=== PATIENT | female | born 1970 | race Caucasian/White ===

== ENCOUNTER 2020-03-03 10:57 | Outpatient (CLI) | payer OTHER, SELFPAY ==
--- NOTE | ~2020-03-03 | MR_ITS ---
EXAMINATION: MR knee LT wo con DATE: 03/03/2020 12:26 INDICATION: Chronic left knee pain TECHNIQUE: Magnetic resonance imaging (MRI) of the left knee was performed without intravenous contra st. Sequences included coronal PD-weighted FSE, coronal PD-weighted FS FSE, sagittal T2-weighted FSE , sagittal PD-weighted FS FSE and axial PD weighted fat saturated FSE. COMPARISON: Left knee radiographs dated 03/17/2019 FINDINGS: Medial compartment: Medial meniscus is normal. Articular cartilage is normal. Lateral compartment: Lateral meniscus is normal. Articular cartilage is normal. Patellofemoral compartment: Partial-thickness chondral ulceration along the inferior aspect of the medial trochlea without degene rative subarticular changes. Ligaments and tendons: Anterior and posterior cruciate ligaments are normal. The medial collateral ligament and fibular anastasiia ateral ligament complex are normal. The extensor mechanism is normal. The visualized medial and later al hamstring tendons as well as the iliotibial band are normal. Fluid: Physiologic amount of fluid in the joint space. No loose osteochondral bodies identified. Osseous/other: Normal marrow signal. No fracture or abnormal marrow replacing process. IMPRESSION: 1. Small region of partial-thickness chondral ulceration without degenerative subarticular changes al shubham the caudal aspect of the medial trochlea. Reviewed, dictated and finalized at location A. IMPRESSION: 1. Small region of partial-thickness chondral ulceration without degenerative s ubarticular changes along the caudal aspect of the medial trochlea.
== END 2020-03-03 10:58 | disposition home or self-care (01) ==
LOC: ANHIMG 11:07
PROVIDERS: PCP Family Medicine
DX: M25.562 Pain in left knee (principal); G89.29 Other chronic pain
CPT/HCPCS: 73721

== ENCOUNTER 2020-04-29 11:20 | Outpatient (CLI) | payer OTHER, SELFPAY ==
--- NOTE | ~2020-04-29 | MR_ITS ---
EXAMINATION: MR knee RT wo con DATE: 04/29/2020 12:13 INDICATION: Acute right knee pain. TECHNIQUE: Magnetic resonance imaging (MRI) of the right knee was performed without intravenous contr ast. Sequences included axial PD-weighted FS FSE, coronal PD-weighted FSE and PD-weighted FS FSE, sag ittal PD-weighted FSE, and sagittal T2-weighted FS FSE. COMPARISON: Right knee radiographs 03/17/2019 FINDINGS: Medial compartment: Medial meniscus is normal. Medial compartment cartilage is normal. Lateral compartment: Lateral meniscus is normal. Lateral compartment cartilage is normal. Patellofemoral compartment: There is cartilage surface irregularity of patellar lateral facet. There is deep partial thickness ca rtilage loss of medial trochlea with mild subchondral edema-like marrow signal intensity. Ligaments and tendons: The anterior and posterior cruciate ligaments are normal. Medial collateral ligament and lateral anastasiia ateral ligament complex are normal. There is mild patellar tendinopathy. Fluid: There is a small knee joint effusion. There is mild superficial infrapatellar bursitis. IMPRESSION: 1. Moderate chondrosis of patellofemoral compartment. 2. Small knee joint effusion. Reviewed, dictated and finalized at location A.
== END 2020-04-29 11:21 | disposition home or self-care (01) ==
PROVIDERS: PCP Family Medicine
DX: M25.461 Effusion, right knee (principal)
CPT/HCPCS: 73721

== ENCOUNTER 2021-10-25 07:28 | Outpatient (RCR) | payer OTHER, SELFPAY ==
[2021-10-25] MEDS: ACETAMINOPHEN 325 MG TABLET 650 MG PO (09:25)
[2021-10-25] MEDS: diphenhydrAMINE HCl CAP 25 MG CAPSULE PO (09:26)
[2021-10-25] MEDS: FAMOTIDINE 20 MG TABLET PO (09:26)
[2021-10-25 09:31] VITALS: BP 127/77; PULSE 70; RESP 18; TEMP 36.4; O2SAT 100
[2021-10-25 10:52] VITALS: BP 120/59; PULSE 74; O2SAT 100
== END 2021-10-25 17:00 ==
LOC: AMCINF 07:28
PROVIDERS: PCP Nurse Practitioner Adult Health; Visit Provider Internal Medicine Hematology & Oncology
DX: U07.1 COVID-19 (principal); D84.9 Immunodeficiency, unspecified
CPT/HCPCS: A9270; M0247; Q0247

== ENCOUNTER 2022-09-18 11:51 | Day surgery (SDC) | payer OTHER, SELFPAY ==
[2022-07-05 08:41] VITALS: BMI 27.7
[2022-09-10 10:04] VITALS: BMI 26.1
--- NOTE | 2022-09-17 15:30 | PM.HPGS ---
History of Present Illness History of Present Illness Consent: Risks, benefits, and alternatives have been discussed and questions answered. Patient agrees to proceed with procedure. Chief complaint: Neoplam Screening Narrative: Dahiana Silvestre is a 51 year old female was referred for colon cancer screening. Review of Systems Review of Systems: All systems reviewed & are unremarkable except as noted in HPI and below PMFSH Past Medical History Medical History Chronic, continuous use of opioids Hyperlipidemia Psoriasis Social History Social History Smoking packs per day: 0.5 Smoking cigarettes per day: 10.0 Years smoked: 20 Smoking pack-years: 10.00 Smoking status: Former smoker Tobacco type: cigarettes Alcohol intake: current Drinks per week: 1 Substance use: never Substance use type: does not use Living arrangements: alone Spiritual care concerns: No Meds Home Medications and Allergies Home Medications Medication Instructions Recorded Confirmed Type folic acid 1 mg tablet 4 mg PO DAILY 10/25/21 09/18/22 History prednisone 5 mg tablet 5 mg PO DAILY 10/25/21 09/18/22 History gabapentin 600 mg tablet 600 mg PO TID 09/10/22 09/18/22 History hydrocodone 7.5 mg-ibuprofen 200 1 tablet PO Q4-6H PRN Pain 09/10/22 09/18/22 History mg tablet methenamine hippurate 1 gram tablet 1 g PO BID 09/10/22 09/18/22 History methotrexate sodium 25 mg/mL 0.2 mg IM WEEKLY 09/10/22 09/18/22 History injection solution oxybutynin chloride 10 mg 10 mg PO HS 09/10/22 09/18/22 History tablet,extended release 24 hr pravastatin 10 mg tablet 10 mg PO HS 09/10/22 09/18/22 History ustekinumab 45 mg/0.5 mL 45 mg subcut DAILY 09/10/22 09/18/22 History subcutaneous syringe (Stelara) Allergies Allergy/AdvReac Type Severity Reaction Status Date / Time No Known Allergies Allergy Verified 09/18/22 12:23 Exam Resp: Auscultation: clear to auscultation bilaterally Cardio: Rate: regular rate Rhythm: regular rhythm GI: GI Palp: Yes Soft to palpation and No Tenderness to palpation present (GI) Assessment and Plan Assessment and plan (1) Colon cancer screening: Code(s): Z12.11 - Encounter for screening for malignant neoplasm of colon Status: Acute Assessment and Plan: Colonoscopy with possible biopsy or polypectomy or cautery or injection of substances.
--- NOTE | 2022-09-18 08:48 | WPDANESEPPF ---
Anes - Initial Pre Proc Eval Procedure: Operation Date: 09/18/22 13:30 Proposed Procedures p Screening Colonoscopy - Torey Dior MD Date/Time: 09/18/22 08:48 Surgeon: Torey Dior MD Pre Op Diagnosis: Neoplam Screening Patient Data Age: 51 Gender: F Height: 1.73 m Weight: 78 kg Allergies Allergy/AdvReac Type Severity Reaction Status Date / Time No Known Allergies Allergy Verified 09/18/22 12:23 Home Medications Medication Instructions Recorded Confirmed Type folic acid 1 mg tablet 4 mg PO DAILY 10/25/21 09/10/22 History prednisone 5 mg tablet 5 mg PO DAILY 10/25/21 09/10/22 History gabapentin 600 mg tablet 600 mg PO TID 09/10/22 09/10/22 History hydrocodone 7.5 mg-ibuprofen 200 1 tablet PO Q4-6H PRN Pain 09/10/22 09/10/22 History mg tablet methenamine hippurate 1 gram tablet 1 g PO BID 09/10/22 09/10/22 History methotrexate sodium 25 mg/mL 0.2 mg IM WEEKLY 09/10/22 09/10/22 History injection solution oxybutynin chloride 10 mg 10 mg PO HS 09/10/22 09/10/22 History tablet,extended release 24 hr pravastatin 10 mg tablet 10 mg PO HS 09/10/22 09/10/22 History ustekinumab 45 mg/0.5 mL mg subcut 09/10/22 History subcutaneous syringe (Stelara) Patient hx anesthesia problems: none Family hx anesthesia problems: none Results Review: All pre-operative results and documents have been reviewed as part of the pre-operative evaluation. [facility] Past Medical History Medical History (Updated 09/18/22 @ 08:49 by Sebastian Mccain DO) Chronic, continuous use of opioids Hyperlipidemia Psoriasis Social History Social History Smoking packs per day: 0.5 Smoking cigarettes per day: 10.0 Years smoked: 20 Smoking pack-years: 10.00 Smoking status: Former smoker Tobacco type: cigarettes Alcohol intake: current Drinks per week: 1 Substance use: never Substance use type: does not use Living arrangements: alone Spiritual care concerns: No Anes - Eval Final PreProcedure Day of Procedure 09/18/22 08:48 Patient weight: overweight Heart: regular rate and rhythm Lungs: clear to auscultation Airway: Mallampati scale class II Neurological: alert and oriented Last oral intake: >/= 8 hours ASA classification: III Emergent: no Anesthetic plan: proceed Anesthesia type and monitoring: general GIVS and standard monitoring Results Review: All pre-operative results and documents have been reviewed as part of the pre-operative evaluation. Informed Consent: The patient's anesthetic plan and its attendant risks and benefits were discussed with the patient/family/POA. Questions were solicited and answers provided to the satisfaction of the patient/family/POA.
[2022-09-18 12:05] VITALS: BP 123/70; PULSE 75; RESP 20; TEMP 36.6; O2SAT 98
[2022-09-18] MEDS: LACTATED RINGERS 1,000 ML 150 ML IV CONT (12:37)
[2022-09-18 13:59] VITALS: BP 99/76; PULSE 90; RESP 16; O2SAT 100
[2022-09-18 14:09] VITALS: BP 103/69; PULSE 78; RESP 16; O2SAT 100
[2022-09-18 14:19] VITALS: BP 117/73; PULSE 79; RESP 18; O2SAT 100
--- NOTE | 2022-09-18 14:30 | WPDANESPN ---
Anes - Prog Note Post-Op Date/Time: 09/18/22 14:30 Cardiovascular status: normal Respiratory status: normal Airway patency: baseline Mental status: baseline Post-Op hydration status: normal Vital Signs: Last Vital Signs Temp 36.6 C 09/18/22 12:05 Pulse 78 09/18/22 14:09 Resp 16 09/18/22 14:09 BP 103/69 09/18/22 14:09 Pulse Ox 100 09/18/22 14:09 O2 Del Method Room Air 09/18/22 14:09 Pain Score (VAS): 0 I/O: Intake & Output 09/17/22 09/18/22 09/18/22 23:59 07:59 15:59 Intake Total 600 Balance 600 Post-procedural complaints: none Patient Feedback: Patient satisfied with anesthetic care. Other Findings: Patient vital signs back to baseline. Patient denies nausea and vomiting. Patient's pain under control. Patient OK for discharge.
== END 2022-09-18 14:35 | disposition home or self-care (01) ==
PROVIDERS: PCP Family Medicine; Visit Provider Internal Medicine Gastroenterology
PROC: 0DJD8ZZ Inspection of Lower Intestinal Tract, Via Natural or Artificial Opening Endoscopic (ICD-10-PCS; CPT 45378; principal; 2022-09-18 13:30)
DX: Z12.11 Encounter for screening for malignant neoplasm of colon (principal)
CPT/HCPCS: 45378

== ENCOUNTER 2024-12-22 10:44 | Outpatient (CLI) | payer OTHER, SELFPAY ==
--- NOTE | ~2024-12-22 | XR_ITS ---
CHEST RADIOGRAPH, PA AND LATERAL CLINICAL HISTORY: R50.9 - Fever, unspecified, congestion . COMPARISON: None available TECHNIQUE: PA and lateral views of the chest. FINDINGS The cardiomediastinal silhouette is unremarkable. The lungs are clear. Visualized osseous structures and soft tissues are unremarkable. IMPRESSION: No focal infiltrate or effusion. Reviewed, dictated and finalized at location A.
--- OUTSIDE RECORDS SUMMARY | 2024-12-22 12:23 | XMS_ITS | Continuity of Care Document ---
Author Organization [facility] Address [address] [place] [address] utive [facility] [address] [place] [address] Phone Care Team Providers Care Stoner Out Name Role Phone Ashelydebbie Manuel Unavailable Unavailable Procedures Procedure Date Eye Exam, New Patient Advance Directives Directive Yes / No Effective Date File Name No Information Encounters Encounter Description Practice Location Reason(s) For Visit Diagnoses Date Provider Providers Copied on Encounter [facility], [address] [place] [address] [address], [place], [place], [id number], [place] tel:[phone] SEC [facility] No Information 2[address] Mara Andersonhil. [address] [facility] [address], [place], [address], [place]. tel:[phone] Family History Family Member Type Diagnosis Age At Onset No Information Payers Payer name Insurance type Covered republican ID Authoriza tion(s) No Information Social History Type Description Quantity Date Captured Comments Sex Female Smoking Status No Information Chief Complaint And Reason For Visit No Information Reason For Referral Reason For Referral No Information History Of Present Illness Encounter Date Complaint History Of Prese nt Illness No Information Functional Status Date Functional Assessmen t No Information Instructions Date Instruction Additional Infor mation No Information Assessments Type Assessment Date No Information Patient Care Teams Name Effective Dates (start - stop) Status Members No Information
--- OUTSIDE RECORDS SUMMARY | 2024-12-22 12:23 | XMS_ITS | Clinical Summary ---
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 Gender Identity Not on file Sexual Orientation Not on file Plan of Treatment Health Maintenance Due Date Last Done Comments Cervical Cancer Screening Pap Smear (Age 30 to 64) Every 3 Years 1968 Colorectal Cancer Screening Colonoscopy (10 Years) 1968 Annual Physical 1971 Hepatitis C 1986 Hepatitis B Vaccines (1 of 3 - 19+ 3-dose series) 1987 Cervical Cancer Screening Pap with HPV Testing (Age 30 to 64) Every 5 Years 1998 Cervical Cancer Screening with HPV 1998 Mammogram Screening 2008 Zoster Vaccines (1 of 2) 2018 DTaP, Tdap and Td Vaccines (2 - Td or Tdap) 05/25/2023 05/25/2013 COVID-19 Vaccine ( season) 2024 09/06/2022, 02/01/2022, 06/01/2021, Additional history exists Influenza Adult (#1) 2024 09/06/2022, 08/02/2021, 07/06/2020, Additional history exists Meningococcal B Vaccine Aged Out No l onger eligible based on patient's age to complete this topic Meningococcal Vaccine Aged Out No cali mattie eligible based on patient's age to complete this topic Pneumococcal Vaccine: Pediatrics (0 to 5 Years) and At-Risk Patients (6 to 64 Years) Aged Out No longer eligible based on patient's age to complete this topic RSV Immunizations Under 20 Months Aged Out No longer eligible based on patient's age to complete this topic
--- OUTSIDE RECORDS SUMMARY | 2024-12-22 12:23 | XMS_ITS | Clinical Summary ---
Author Organization [facility] Administrative Offices Address [address] [place] [address] Care Team Providers Care Invasive Cardiologist Name Role Phone Luann Wu QUENTIN Primary Care Provider [phone] Allergies Active Allergy Reactions Criticality Noted Date Comments Naproxen Other (See Comments) 02/16/2020 Medications CYANOCOBALAMIN, VITAMIN B-12, INJECTION 1 mL. Active cyclobenzaprine (FLEXERIL) 5 mg Tablet 1 tab(s) Active gabapentin (NEURONTIN) 600 mg tablet Take by mouth. Activ e methotrexate, PF, (Rasuvo, PF,) 20 mg/0.4 mL Auto-Injector 20 mg Active ALPRAZolam (XANAX) 0.5 mg tablet alprazolam 0.5 mg tablet TK 1 T PO QD PRN Active budesonide (ENTOCORT EC) 3 mg Enteric Coated [address] - ER 3 mg capsule,delayed, extended release Active cholecalciferol , Vitamin D3, (Vitamin D3) 50 mcg (2,000 unit) Tablet 1 tab(s) Active folic acid (FOLVITE) 1 mg tablet TK 3 TS PO QD 0 Active oxybutynin chloride (DITROPAN XL) 10 mg Extended Release 24 hour tablet 1 tab(s) Active PARoxetine HCl (PAXIL) 10 mg tablet 1 tab(s) Active pravastatin (PRAVACHOL) 10 mg tablet pravastatin 10 mg tablet TK 1 T PO QD HS Active predniSONE (DELTASONE) 5 mg tablet TK 6 TS PO DAILY FOR 2 DAYS THEN DECREASE BY 1 T Q 2 DAYS UNTIL GONE 0 Active propylene glycol (Systane Balance) 0.6 % Drops Systane Balance 0.6 % eye drops Instill 1-2 drops in each eye prn dryness Active BD INTEGRA SYRINGE 3 mL 25 gauge x 1 Syringe USE DIRECTED WITH B12 INJECTIONS MONTHLY 0 Active diclofenac sodium (Pennsaid) 20 mg/gram /actuation(2 %) solution in metered-dose pumpIndications :Chronic pain of left knee 1 pump twice day 1 Each 3 0 Active Xeljanz XR 11 mg er tablet 0 Active ibuprofen (MOTRIN) 800 mg tablet TK 1 T PO Q 8 H WF PRN 0 Active lemborexant (Dayvigo) 5 mg Tablet Dayvigo 5 mg tablet TK 1 T PO QD HS Active sulfamethoxazol e-trimethoprim (BACTRIM DS) 800-160 mg tablet TAKE 1 TABLET BY MOUTH EVERY 12 HOURS FOR 3 DAYS 0 Active Hospital, Clinic, or Other Facility Administered Medication Ordered Dose Route Frequency Start Date End Date Status methylPREDNISolone acetate (DEPO-Medrol) 40 mg/mL injection 40 mgIndications:Primar y osteoarthritis of both knees 40 mg Intra-arTIC u ONE TIME ONLY 05/16/2020 Active Active Problems Problem Noted Date Diagnosed Date Anxiety 02/23/2020 Collagenous colitis 02/23/2020 Degeneration of cervical intervertebral disc History of tobacco use 02/23/2020 Neuropathy 02/23/2020 Other fci (current) drug therapy 0 Pernicious anemia 02/23/2020 Psoriasis with arthropathy 02/23/2020 Urge incontinence of urine 02/23/2020 Uveitis 02/23/2020 Vitamin D deficiency 02/23/2020 Hyperlipidemia 05/19/2019 Ankylosing spondylitis 10/13/2017 Family History Medical History Relation Name Comments Hypertension Father Hypertension Mother Relation Name Status Comments Father Mother Social History Tobacco Use Types Packs/Day Years Used Date Smoking Tobacco: Never Smokeless Tobacco: Never Alcohol Use Standard Drinks/Week Comments Never 0 (1 standard drink = 0.6 oz pur e alcohol) Comments Unknown Sex and Gender Information Value Date Recorded Sex Assigned at Not on file Legal Sex Female 1:43 PM CDT Gender Identity Not on file Sexual Orientation Not on file Last Filed Vital Signs Vital Sign Reading Time Taken Comments Blood Pressure - - Pulse - - Temperature - - Respiratory Rate - - Oxygen Saturation - - Inhaled Oxygen Concentration - - Weight 70.3 kg (155 lb) 10/03/2020 4:36 PM CONTRACT DESIGN AGENT Height 172.7 cm (5' 8 ) 10/03/2020 4:36 PM CONTRACT DESIGN AGENT Body Mass Index 23.57 10/03/2020 4:36 PM CONTRACT DESIGN AGENT Plan of Treatment Health Maintenance Due Date Last Done Comments HEPATITIS B VACCINES (1 of 3 - 19+ 3-dose series) 1987 CERVICAL CANCER SCREENING 1998 BREAST CANCER SCREENING 2008 COLORECTAL SCREENING 2013 Colorectal Cancer Screening 2013 FIT-DNA Q 3 years 2013 FIT/FOBT Q 1 year 2013 Flex Sig/CT Colonography Q 5 years 2013 ZOSTER VACCINE (1 of 2) 2018 DTAP/TDAP/TD VACCINES (2 - T d or Tdap) 05/25/2023 05/25/2013 INFLUENZA VACCINE (#1) 2024 9, 09/16/2015, 10/13/2013 PNEUMOCOCCAL VACCINE 0-49 YEARS Aged Out No longer eligible b ased on patient's age to complete this topic Insurance Care Teams Invasive Cardiologist Relationship Specialty Start Date End Date Luann Wu ANP [address] [address] PCP - General NURSE PRACTITIONER 08/07/17
--- OUTSIDE RECORDS SUMMARY | 2024-12-22 12:23 | XMS_ITS | CONTINUITY OF CARE DOCUMENT ---
Author Name randall pereira Address Unknown Organization [facility] Address [id number] [place] [address] [address] [place] [address] Phone [phone] Care Team Providers Care Furniture Removalist Name Role Phone Rd GAN, [facility] Unavailable WIN KITCHEN MD Unavailable WIN KITCHEN MD Unavailable INSURANCE PROVIDERS Payer name Policy type / Coverage type [place] red republican ID [facility] Other [id number]
--- OUTSIDE RECORDS SUMMARY | 2024-12-22 12:23 | XMS_ITS | Clinical Summary ---
Author Organization [facility] [employer] Address [address] [place] [address] Care Team Providers Care Poultry Husbandry Teacher Name Role Phone Unavailable Primary Care Provider Unavailabl e Source Comments [facility] [employer],non-owned Affiliates and Associated Physician Practices is amultiple site organization consisting of ambulatory clinics and hospital sitesin [place], [place], [place] and [place]. This disclosure is being madepursuant to the Care Everywhere program and may not contain all information available regarding this patient. Last updated 18.[employer] Allergies No known active allergies Medications * Be aware that medications may not be up to date on this document. Alwaysverify current medications with the patient. Medication Sig Dispensed Refills Start Date End Date Status adalimumab (HUMIRA) 10 MG/0.2ML injection Inject subcutaneously once Active methotrexate 2.5 MG tablet Take 2.5 mg by mouth every Friday, Friday & Friday Active GABAPENTIN & DIET MANAGE PROD PO Active fluticasone propionate (FLONASE) 50 MCG/ACT nasal spray [place] 1 [place] into each nostril 2 times daily 1 Bottle 1 10/10/2016 Active Social History Tobacco Use Types Packs/Day Years Used Date Smoking Tobacco: Former Sex and Gender Information Value Date Recorded Sex Assigned at Not on file Gender Identity Not on file Sexual Orientation Not on file Last Filed Vital Signs Vital Sign Reading Time Taken Comments Blood Pressure 132/90 10/10/2016 3:11 PM REFURBISH TECHNICIAN Pulse 84 10/10/2016 3:11 PM REFURBISH TECHNICIAN Temperature 36.8 C (98.2 F) 10/10/2016 3:11 PM REFURBISH TECHNICIAN Respiratory Rate - - Oxygen Saturation - - Inhaled Oxygen Concentration - - Weight 71.7 kg (158 lb) 10/10/2016 3:11 PM REFURBISH TECHNICIAN Height 172.7 cm (5' 8 ) 10/10/2016 3:11 PM REFURBISH TECHNICIAN Body Mass Index 24.02 10/10/2016 3:11 PM REFURBISH TECHNICIAN Plan of Treatment Health Maintenance Due Date Last Done Comments COLOGUARD (AGES 45-75) - COL ON CA SCREENING 1968 COLON MONITORING 1968 COLONOSCOPY - COLON CA SCREENING 1968 CT COLONOGRAPHY - COLON CA SCREENING 1968 Colorectal Cancer Screening 1968 FIT - COLON CA SCREENING 1968 FLEX SIG - COLON CA SCREENING 1968 LIPID TESTING 1968 MAMMOGRAM 1968 PAP SMEAR 1968 HIV SCREENING 1983 HEPATITIS C SCREENING 09/25/1986 DTAP/TDAP/TD VACCINES (1 - Tdap) 1987 HEPATITIS B VACCINE (1 of 3 - 19+ 3-dose series) 1987 PNEUMOCOCCAL VACCINE 50+ (1 of 1 - PCV) 2018 ZOSTER VACCINE (1 of 2) 2018 COVID-19 VACCINE (1 - 2023-2 5 season) 2024 INFLUENZA VACCINE (#1) 2024 DEPRESSION SCREENING 10/13/2024 HIB VACCINE Aged Out No longer eligi ble based on patient's age to complete this topic HPV VACCINE Aged Out No longer eligi ble based on patient's age to complete this topic MENINGOCOCCAL (Group B) VACC INE SHARED DECISION-MAKING Aged Out No longer eligibl e based on patient's age to complete this topic MENINGOCOCCAL GROUPS A/C/Y/W VACCINE Aged Out No longer eligible b ased on patient's age to complete this topic PNEUMOCOCCAL VACCINE Aged Out No long er eligible based on patient's age to complete this topic Dahiana Silvestre Personal/Famil y Self 1970 [facility] [place] [address]
--- OUTSIDE RECORDS SUMMARY | 2024-12-22 12:23 | XMS_ITS | Referral Summary ---
Author Organization [facility] [employer] Address [address] [place] [address] Care Team Providers Care Tomography Technologist Name Role Phone Unavailable Primary Care Provider Unavailabl e Source Comments [facility],non-owned Affiliates and Associated Physician Practices is amultiple site organization consisting of ambulatory clinics and hospital sitesin [place], [place], [place] and [place]. This disclosure is being madepursuant to the Care Everywhere program and may not contain all information available regarding this patient. Last updated 18.[facility] Allergies No known active allergies Medications * [...] fluticasone propionate (FLONASE) 50 MCG/ACT nasal spray [place] 1 [place] into each nostril 2 times daily 1 Bottle 1 10/10/2016 Active Social History Tobacco Use Types Packs/Day Years Used Date Smoking Tobacco: Former Sex and Gender Information Value Date Recorded Sex Assigned at Not on file Gender Identity Not on file Sexual Orientation Not on file Last Filed Vital Signs Vital Sign Reading Time Taken Comments Blood Pressure 132/90 10/10/2016 3:11 PM WIRE WEB WORKER Pulse 84 10/10/2016 3:11 PM WIRE WEB WORKER Temperature 36.8 C (98.2 F) 10/10/2016 3:11 PM WIRE WEB WORKER Respiratory Rate - - Oxygen Saturation - - Inhaled Oxygen Concentration - - Weight 71.7 kg (158 lb) 10/10/2016 3:11 PM WIRE WEB WORKER Height 172.7 cm (5' 8 ) 10/10/2016 3:11 PM WIRE WEB WORKER Body Mass Index 24.02 10/10/2016 3:11 PM WIRE WEB WORKER Plan of Treatment Not on file
--- OUTSIDE RECORDS SUMMARY | 2024-12-22 12:23 | XMS_ITS | Patient Health Record ---
Author Organization [facility] Address [address] [facility] Rissa Gonzalez [facility] [address] [place], [place] [id number] Care Team Providers Care Supervisor [employer] Name Role Phone PAZ GAN, DILLON Primary Care Provider Niurka Tabares Unavailable [phone] IMTIAZ GAN, WIN Unavailable Unavailable Val Garay Unavailable [phone] ALLERGIES Allergen (clinical drug ingredient) Drug/Non Drug Allergy documented on EMR Reaction Allergy Type Onset Date Status naproxen (uncoded) stomach pain Allergy Active RESULTS Component Value Reference Range Notes AST (SGOT) Reviewed date:01/10/2024 10:32:52 PM Interpretation: Performing Lab:[facility] [address] [place] [address], Phone - [phone], [facility]/Report: AST (SGOT) 15 0-40 IU/L Creatinine, Serum Reviewed date:01/10/2024 10:32:52 PM Interpretation: Performing Lab:[email or web address], [address] [place] [address], Phone - [phone], [facility] - [facility] Notes/Report: Creatinine 0.70 0.57-1.00 mg/dL eGFR 102 >59 mL/min/1.73 ALT (SGPT) Reviewed date:01/10/2024 10:32:52 PM Interpretation: Performing Lab:[facility], [address] [place] [address], Phone - [phone], Director - [facility] Notes/Report: ALT (SGPT) 12 0-32 IU/L CBC With Differential/Platel et Reviewed date:01/10/2024 10:32:52 PM Interpretation: Performing Lab:[facility] [address] [place] [address], Phone - [phone], [facility] Notes/Report: WBC 7.2 3.4-10.8 x10E3/uL RBC 4.85 3.77-5.28 x10E6/uL Hemoglobin 14.3 11.1-15.9 g/dL Hematocrit 42.5 34.0-46.6 % MCV 88 79-97 fL MCH 29.5 26.6-33.0 pg MCHC 33.6 31.5-35.7 g/dL RDW 13.0 11.7-15.4 % Platelets 291 150-450 x10E3/uL Neutrophils 68 Not Estab. % Lymphs 19 Not Estab. % Monocytes 10 Not Estab. % Eos 2 Not Estab. % Basos 1 Not Estab. % Immature Cells Neutrophils (Absolute) 4.9 1.4-7.0 x10E3/uL Lymphs (Absolute) 1.4 0.7-3.1 x10E3/uL Monocytes(Absolute) 0.7 0.1-0.9 x10E3/uL Eos (Absolute) 0.1 0.0-0.4 x10E3/uL Baso (Absolute) 0.1 0.0-0.2 x10E3/uL Immature Granulocytes 0 Not Estab. % Immature Grans (Abs) 0.0 0.0-0.1 x10E3/uL NRBC Hematology Comments: Sed Rate - Westergren Reviewed date:01/10/2024 10:32:52 PM Interpretation: Performing Lab:[facility] [address] [place] [address], Phone - [phone], [facility]/Report: Sedimentation Rate-Westergren 34 0-40 mm/hr C-Reactive Protein, Quant Reviewed date:01/10/2024 10:32:52 PM Interpretation: Performing Lab:[facility] [address] [place] [address], Phone - [phone], [facility]/Report: C-Reactive Protein, Quant 2 0-10 mg/L VITAMIN D, 25-HYDROXY, LC/MS /MS Reviewed date:01/10/2024 10:32:52 PM Interpretation: Performing Lab:[facility] [address], Phone - [phone], Director - [facility] Notes/Report: Vitamin D, 25-Hydroxy 33.2 30.0-100.0 ng/mL Vitamin D deficiency has been defined by the Andrews of Medicine and an Endocrine Society practice guideline as a level of serum 25-OH vitamin D less than 20 ng/mL (1,2). The Endocrine Society went on to further define vitamin D insufficiency as a level between 21 and 29 ng/mL (2). 1. IOM (Andrews of Medicine). 2010. Dietary reference intakes for calcium and D. [place]: The National Academies Press. 2. Argenis MF, Tae NC, Misael MILLER, et al. Evaluation, treatment, and prevention of vitamin D deficiency: an Endocrine Society clinical practice guideline. JCEM. 2010; 96(7):1911-30. AST (SGOT) Reviewed date:04/13/2024 10:51:26 AM Interpretation: Performing Lab:[facility] [address], Phone - [phone], Director - [facility] Notes/Report: AST (SGOT) 22 0-40 IU/L Creatinine, Serum Reviewed date:04/13/2024 10:51:22 AM Interpretation: Performing Lab:[facility] [address], Phone - [phone], Director - [facility] Notes/Report: Creatinine 0.69 0.57-1.00 mg/dL eGFR 102 >59 mL/min/1.73 ALT (SGPT) Reviewed date:04/13/2024 10:51:20 AM Interpretation: Performing Lab:[facility] [address], Phone - [phone], Director - [facility] Notes/Report: ALT (SGPT) 21 0-32 IU/L CBC With Differential/Platel et Reviewed date:04/13/2024 10:51:18 AM Interpretation: Performing Lab:[facility], Phone - [phone], [facility] Notes/Report: WBC 5.7 3.4-10.8 x10E3/uL RBC 4.38 3.77-5.28 x10E6/uL Hemoglobin 13.2 11.1-15.9 g/dL Hematocrit 39.0 34.0-46.6 % MCV 89 79-97 fL MCH 30.1 26.6-33.0 pg MCHC 33.8 31.5-35.7 g/dL RDW 13.1 11.7-15.4 % Platelets 263 150-450 x10E3/uL Neutrophils 62 Not Estab. % Lymphs 25 Not Estab. % Monocytes 10 Not Estab. % Eos 2 Not Estab. % Basos 1 Not Estab. % Immature Cells Neutrophils (Absolute) 3.6 1.4-7.0 x10E3/uL Lymphs (Absolute) 1.4 0.7-3.1 x10E3/uL Monocytes(Absolute) 0.6 0.1-0.9 x10E3/uL Eos (Absolute) 0.1 0.0-0.4 x10E3/uL Baso (Absolute) 0.1 0.0-0.2 x10E3/uL Immature Granulocytes 0 Not Estab. % Immature Grans (Abs) 0.0 0.0-0.1 x10E3/uL NRBC Hematology Comments: Acute Hepatitis Reviewed date:04/13/2024 10:51:24 AM Interpretation: Performing Lab:[facility] [address], Phone - [phone], Director - [facility] Notes/Report: Hep A Ab, IgM Negative Negative HBsAg Screen Negative Negative Hep B Core Ab, IgM Negative Negative HCV Ab Non Reactive Non Reactive Interpretation: Not infected with HCV unless early or acute infection is suspected (which may be delayed in an immunocompromised individual), or other evidence exists to indicate HCV infection. AST (SGOT) Reviewed date:07/17/2024 09:04:19 PM Interpretation: Performing Lab:[facility] [address] [facility], Phone - [phone], [facility] Notes/Report: AST (SGOT) 23 0-40 IU/L Creatinine, Serum Reviewed date:07/17/2024 09:04:19 PM Interpretation: Performing Lab:[facility] [address] [facility], Phone - [phone], Director - [facility] Notes/Report: Creatinine 0.78 0.57-1.00 mg/dL eGFR 90 >59 mL/min/1.73 ALT (SGPT) Reviewed date:07/17/2024 09:04:19 PM Interpretation: Performing Lab:[facility], [address] [place] [address], Phone - [phone], Director - [facility] Notes/Report: ALT (SGPT) 19 0-32 IU/L CBC With Differential/Platel et Reviewed date:07/17/2024 09:04:19 PM Interpretation: Performing Lab:[address], Phone - [phone], Director - [facility] Notes/Report: WBC 6.8 3.4-10.8 x10E3/uL RBC 4.59 3.77-5.28 x10E6/uL Hemoglobin 13.7 11.1-15.9 g/dL Hematocrit 42.3 34.0-46.6 % MCV 92 79-97 fL MCH 29.8 26.6-33.0 pg MCHC 32.4 31.5-35.7 g/dL RDW 13.1 11.7-15.4 % Platelets 296 150-450 x10E3/uL Neutrophils 60 Not Estab. % Lymphs 28 Not Estab. % Monocytes 8 Not Estab. % Eos 3 Not Estab. % Basos 1 Not Estab. % Immature Cells Neutrophils (Absolute) 4.1 1.4-7.0 x10E3/uL Lymphs (Absolute) 1.9 0.7-3.1 x10E3/uL Monocytes(Absolute) 0.5 0.1-0.9 x10E3/uL Eos (Absolute) 0.2 0.0-0.4 x10E3/uL Baso (Absolute) 0.1 0.0-0.2 x10E3/uL Immature Granulocytes 0 Not Estab. % Immature Grans (Abs) 0.0 0.0-0.1 x10E3/uL NRBC Hematology Comments: Sed Rate - Westergren Reviewed date:07/17/2024 09:04:19 PM Interpretation: Performing Lab:[address], Phone - [phone], Director - [facility] Notes/Report: Sedimentation Rate-Westergren 19 0-40 mm/hr C-Reactive Protein, Quant Reviewed date:07/17/2024 09:04:19 PM Interpretation: Performing Lab:[facility], Phone - [phone], Director - [facility] Notes/Report: C-Reactive Protein, Quant 12 0-10 mg/L VITAMIN D, 25-HYDROXY, LC/MS /MS Reviewed date:07/17/2024 09:04:19 PM Interpretation: Performing Lab:[facility], Phone - [phone], Director - [facility] Notes/Report: Vitamin D, 25-Hydroxy 34.9 30.0-100.0 ng/mL Vitamin D deficiency has been defined by the Andrews of Medicine and an Endocrine Society practice guideline as a level of serum 25-OH vitamin D less than 20 ng/mL (1,2). The Endocrine Society went on to further define vitamin D insufficiency as a level between 21 and 29 ng/mL (2). 1. IOM (Andrews of Medicine). 2010. Dietary reference intakes for calcium and D. [place]: The National Academies Press. 2. Argenis MF, Tae NC, Misael MILLER, et al. Evaluation, treatment, and prevention of vitamin D deficiency: an Endocrine Society clinical practice guideline. JCEM. 2010; 96(7):1911-30. AST (SGOT) Reviewed date:11/16/2024 07:01:45 AM Interpretation: Performing Lab:[facility], Phone - [phone], Director - [facility] Notes/Report: AST (SGOT) 22 0-40 IU/L Creatinine, Serum Reviewed date:11/16/2024 07:01:54 AM Interpretation: Performing Lab:[facility], Phone - [phone], Director - [facility] Notes/Report: Creatinine 0.75 0.57-1.00 mg/dL eGFR 93 >59 mL/min/1.73 ALT (SGPT) Reviewed date:11/16/2024 07:01:51 AM Interpretation: Performing Lab:[facility], Phone - [phone], Director - [facility] Notes/Report: ALT (SGPT) 18 0-32 IU/L CBC With Differential/Platel et Reviewed date:11/16/2024 07:06:43 AM Interpretation: Performing Lab:[address], Phone - [phone], Director - [facility] Notes/Report: WBC 6.3 3.4-10.8 x10E3/uL RBC 4.85 3.77-5.28 x10E6/uL Hemoglobin 14.2 11.1-15.9 g/dL Hematocrit 43.3 34.0-46.6 % MCV 89 79-97 fL MCH 29.3 26.6-33.0 pg MCHC 32.8 31.5-35.7 g/dL RDW 12.9 11.7-15.4 % Platelets 305 150-450 x10E3/uL Neutrophils 58 Not Estab. % Lymphs 26 Not Estab. % Monocytes 11 Not Estab. % Eos 4 Not Estab. % Basos 1 Not Estab. % Immature Cells Neutrophils (Absolute) 3.7 1.4-7.0 x10E3/uL Lymphs (Absolute) 1.7 0.7-3.1 x10E3/uL Monocytes(Absolute) 0.7 0.1-0.9 x10E3/uL Eos (Absolute) 0.2 0.0-0.4 x10E3/uL Baso (Absolute) 0.1 0.0-0.2 x10E3/uL Immature Granulocytes 0 Not Estab. % Immature Grans (Abs) 0.0 0.0-0.1 x10E3/uL NRBC Hematology Comments: QUANTIFERON(R)-TB GOLD PLUS, 1 TUBE Reviewed date:11/16/2024 07:06:58 AM Interpretation: Performing Lab:[address], Phone - [phone], Director - [facility] Notes/Report: QuantiFERON Incubation Incubation performed. QuantiFERON-TB Gold Plus Negative Negative No response to M tuberculosis antigens detected. Infection with M tuberculosis is unlikely, but high risk individuals should be considered for additional testing (ATS/IDSA/CDC Clinical Practice Guidelines, 2017). The reference range is an Antigen minus Nil result of <0.35 IU/mL. Chemiluminescence immunoassay methodology QuantiFERON Criteria QuantiFERON-TB Gold Plus is a qualitative indirect test for M tuberculosis infection (including disease) and is intended for use in conjunction with risk assessment, radiography, and other medical and diagnostic evaluations. The QuantiFERON-TB Gold Plus result is determined by subtracting the Nil value from either TB antigen (Ag) value. The Mitogen tube serves as a control for the test. QuantiFERON TB1 Ag Value 0.04 QuantiFERON TB2 Ag Value 0.03 QuantiFERON Nil Value 0.00 QuantiFERON Mitogen Value >10.00 REASON FOR REFERRAL No Information MEDICATIONS Medication SIG (Take, Route, Frequency, Duration) Notes Start Date End Date Status predniSONE 5 mg 6 tablets for 2 days then decrease by 1 tablet every 2 days until mike orally once a day for 12 days 11/16/2024 Active predniSONE 5 mg 6 tablets for 2 days then decrease by 1 tablet every 2 days until mike orally once a day for 12 days PRN 05/09/2024 Not-Taking Tremfya One-Press 100 mg/mL 100mg subcutaneously every 8 weeks for 56 days Not-Ta kesley Tremfya One-Press 100 mg/mL 100mg subcutaneously every 8 weeks Active pravastatin 10 mg 1 tab(s) orally once a day Active folic acid 1 mg 4 tab(s) orally once a day Active gabapentin 600 mg orally tid A ctive leflunomide 10 mg 1 tab(s) orally once a day for 90 days Active hydrocodone-ibuprofen 7.5 mg-200 mg 1 tab(s) orally every 4 hours Active oxyBUTYnin 10 mg/24 hr 1 tab(s) orally o nce a day Active Vitamin D3 2000 intl units 1 tab(s) orally once a day Active SOCIAL HISTORY Sex Assigned At : Social History Observation Description Sex Assigned At Unknown PROBLEMS Problem Type ICD Code Onset Dates Problem Status W/U Status Risk SNOMED Code Notes Problem Other mcc (current) drug therapy (Z79.899) Active confirmed 941462884 Problem Vitamin D deficiency (E55.9) Active confirmed 90177258 Problem Psoriatic arthritis (L40.50) Active confirmed 68134339 Problem Uveitis (H20.9) Active confirmed 079113 001 Problem Neuropathy (G62.9) Active confirmed 266686063 Problem Ankylosing spondylitis of lumbosacral region (M45.7) Active confirmed 6344570 Problem Dysuria (R30.0) Active confirmed 392352 01 Problem Encounter for other specified special examinations (Z.) Active confirmed 226773355 Problem Degenerative disc disease, cervical (M50.30) Active confirmed 86238459 Problem Former cigarette smoker (Z87.891) Active confirmed 836591157 Problem Collagenous colitis (K52.831) Active confirmed 55235944 VITAL SIGNS Heart Rate 95 /min 11/12/2024 Blood pressure diastolic 84 mm Hg 11/12/2024 Height 67 in 11/12/2024 Blood pressure systolic 126 mm Hg 11/12/2024 Weight 167 lbs 11/12/2024 BMI 26.15 kg/m2 11/12/2024 Encounters Encounter Location Date Provider Diagnosis [facility] [address] [place] [address], [address] [place], [place] [id number] 01/09/2024 Val Hartig Psoriatic arthritis L40.50 ; Degenerative disc disease, cervical M50.30 ; Other oil heaterman (current) drug therapy Z79.899 ; Encounter for screening for respiratory tuberculosis Z11.1 ; Vitamin D deficiency E55.9 ; Uveitis H20.9 ; Ankylosing spondylitis of lumbosacral region M45.7 and Dysuria R30.0 [facility] [address] [place] [address], [address] [place], [place] [id number] 04/12/2024 Niurka Vences Psoriatic arthritis L40.50 ; Degenerative disc disease, cervical M50.30 ; Other oil heaterman (current) drug therapy Z79.899 ; Encounter for screening for respiratory tuberculosis Z11.1 ; Vitamin D deficiency E55.9 ; Uveitis H20.9 ; Ankylosing spondylitis of lumbosacral region M45.7 ; Dysuria R30.0 and Encounter for other specified special examinations Z01. [facility] [address] [place] [address], [address] [place], [place] [id number] 07/15/2024 Val Hartig Psoriatic arthritis L40.50 ; Degenerative disc disease, cervical M50.30 ; Other oil heaterman (current) drug therapy Z79.899 ; Vitamin D deficiency E55.9 ; Ankylosing spondylitis of lumbosacral region M45.7 ; Encounter for screening for respiratory tuberculosis Z11.1 ; Encounter for other specified special examinations Z01.89 ; Uveitis H20.9 and Dysuria R30.0 [facility] [address] [place] [address], [address] [id number] 10/18/2024 Niurka Delaura Psoriatic arthritis L40.50 ; Degenerative disc disease, cervical M50.30 ; Other oil heaterman (current) drug therapy Z79.899 ; Vitamin D deficiency E55.9 ; Ankylosing spondylitis of lumbosacral region M45.7 ; Encounter for screening for respiratory tuberculosis Z11.1 ; Encounter for other specified special examinations Z01.89 ; Uveitis H20.9 and Dysuria R30.0 [facility] [address] [place] [address], [address] [id number] 11/12/2024 Niurka Delaura Psoriatic arthritis L40.50 ; Degenerative disc disease, cervical M50.30 ; Other mcc (current) drug therapy Z79.899 ; Vitamin D deficiency E55.9 ; Ankylosing spondylitis of lumbosacral region M45.7 ; Encounter for screening for respiratory tuberculosis Z11.1 ; Encounter for other specified special examinations Z01.89 ; Uveitis H20.9 and Dysuria R30.0 [facility] [address] [place] [address], [address] [id number] 01/09/2024 Niurka Vences [facility] [address] [place] [address], [address] [id number] 01/23/2024 Niurka Vences Psoriatic arthritis L40.50 [facility] [address] [place] [address], [address] [id number] 04/12/2024 Niurka Vences [facility] [address] [place] [address], [address] [id number] 04/16/2024 Niurka Vences [facility] [address] [place] [address], [address] [id number] 04/16/2024 Niurka Vences [facility] [address] [place] [address], [address] [id number] 04/16/2024 Niurka Vences [facility] [address] [place], [place] [address], [address] [id number] 04/16/2024 Niurka Vences [facility], [address] [id number] 04/19/2024 Niurkaavery Vences [facility], [address] [id number] 05/09/2024 Niurkaavery Vences [facility], [address] [id number] 08/31/2024 Niurka Vences Psoriatic arthritis L40.50 [facility] [address] [place] [id number] 10/14/2024 Niurka Vences [facility] [address] [place] [address], [address] [id number] 10/14/2024 Niurka Vences [facility] [address] [place] [id number] 11/16/2024 Niurka Vences ASSESSMENTS Encounter Date Diagnosis Assessment Notes Treatment Notes Treatment Clinical Notes 01/09/2024 Psoriatic arthritis (ICD-10 - L40.50) 01/09/2024 Degenerative disc disease, cervical (ICD-10 - M50.30) 04/12/2024 Psoriatic arthritis (ICD-10 - L40.50) 04/12/2024 Degenerative disc disease, cervical (ICD-10 - M50.30) 07/15/2024 Psoriatic arthritis (ICD-10 - L40.50) 07/15/2024 Degenerative disc disease, cervical (ICD-10 - M50.30) 10/18/2024 Psoriatic arthritis (ICD-10 - L40.50) 10/18/2024 Degenerative disc disease, cervical (ICD-10 - M50.30) 11/12/2024 Psoriatic arthritis (ICD-10 - L40.50) 11/12/2024 Degenerative disc disease, cervical (ICD-10 - M50.30) 01/23/2024 Psoriatic arthritis (ICD-10 - L40.50) 08/31/2024 Psoriatic arthritis (ICD-10 - L40.50) 01/09/2024 Other oil heaterman (current) drug therapy (ICD-10 - Z79.899) 04/12/2024 Other mcc (current) drug therapy (ICD-10 - Z79.899) 07/15/2024 Other mcc (current) drug therapy (ICD-10 - Z79.899) 10/18/2024 Other mcc (current) drug therapy (ICD-10 - Z79.899) 11/12/2024 Other mcc (current) drug therapy (ICD-10 - Z79.899) 01/09/2024 Encounter for screening for respiratory tuberculosis (ICD-10 - Z11.1) 04/12/2024 Encounter for screening for respiratory tuberculosis (ICD-10 - Z11.1) 07/15/2024 Vitamin D deficiency (ICD-10 - E55.9) 10/18/2024 Vitamin D deficiency (ICD-10 - E55.9) 11/12/2024 Vitamin D deficiency (ICD-10 - E55.9) 01/09/2024 Vitamin D deficiency (ICD-10 - E55.9) 04/12/2024 Vitamin D deficiency (ICD-10 - E55.9) 07/15/2024 Ankylosing spondylitis of lumbosacral region (ICD-10 - M45.7) 10/18/2024 Ankylosing spondylitis of lumbosacral region (ICD-10 - M45.7) 11/12/2024 Ankylosing spondylitis of lumbosacral region (ICD-10 - M45.7) 01/09/2024 Uveitis (ICD-10 - H20.9) 04/12/2024 Uveitis (ICD-10 - H20.9) 07/15/2024 Encounter for screening for respiratory tuberculosis (ICD-10 - Z11.1) 10/18/2024 Encounter for screening for respiratory tuberculosis (ICD-10 - Z11.1) 11/12/2024 Encounter for screening for respiratory tuberculosis (ICD-10 - Z11.1) 01/09/2024 Ankylosing spondylitis of lumbosacral region (ICD-10 - M45.7) 04/12/2024 Ankylosing spondylitis of lumbosacral region (ICD-10 - M45.7) 07/15/2024 Encounter for other specified special examinations (ICD-10 - Z01.89) 10/18/2024 Encounter for other specified special examinations (ICD-10 - Z01.89) 11/12/2024 Encounter for other specified special examinations (ICD-10 - Z01.89) 01/09/2024 Dysuria (ICD-10 - R30.0) 04/12/2024 Dysuria (ICD-10 - R30.0) 07/15/2024 Uveitis (ICD-10 - H20.9) 10/18/2024 Uveitis (ICD-10 - H20.9) 11/12/2024 Uveitis (ICD-10 - H20.9) 04/12/2024 Encounter for other specified special examinations (ICD-10 - Z01.89) 07/15/2024 Dysuria (ICD-10 - R30.0) 10/18/2024 Dysuria (ICD-10 - R30.0) 11/12/2024 Dysuria (ICD-10 - R30.0) PLAN OF TREATMENT Pending Test Test Name Order Date MRI : Cervical Spines 08/06/2017 AST (SGOT) 05/22/2015 AST (SGOT) 10/29/2018 AST (SGOT) 02/12/2021 AST (SGOT) 07/22/2023 AST (SGOT) 08/26/2023 AST (SGOT) 04/03/2022 AST (SGOT) 09/27/2020 AST (SGOT) 02/16/2020 Creatinine, Serum 09/27/2020 Creatinine, Serum 02/16/2020 Creatinine, Serum 05/22/2015 Creatinine, Serum 10/29/2018 Creatinine, Serum 02/12/2021 Creatinine, Serum 07/22/2023 Creatinine, Serum 04/03/2022 ALT (SGPT) 07/22/2023 ALT (SGPT) 04/03/2022 ALT (SGPT) 09/27/2020 ALT (SGPT) 02/16/2020 ALT (SGPT) 05/22/2015 ALT (SGPT) 10/29/2018 ALT (SGPT) 02/12/2021 ALT (SGPT) 08/26/2023 CBC With Differential/Platelet 3 CBC With Differential/Platelet 2 CBC With Differential/Platelet 0 CBC With Differential/Platelet 0 CBC With Differential/Platelet 5 CBC With Differential/Platelet 9 CBC With Differential/Platelet 1 Sed Rate - Westergren 08/26/2023 Sed Rate - Westergren 07/22/2023 Sed Rate - Westergren 04/03/2022 Sed Rate - Westergren 09/27/2020 Sed Rate - Westergren 02/16/2020 C-Reactive Protein, Quant 08/26/2023 C-Reactive Protein, Quant 09/27/2020 C-Reactive Protein, Quant 02/16/2020 VITAMIN D, 25-HYDROXY, LC/MS/MS 02/16/20 20 VITAMIN D, 25-HYDROXY, LC/MS/MS 04/03/20 22 VITAMIN D, 25-HYDROXY, LC/MS/MS 09/27/20 20 Joint Injection - knee, left 02/22/2019 Joint Injection - knee, left 03/01/2016 Joint Injection - knee, left 06/19/2018 Joint Injection - knee, right 10/10/2022 Joint Injection - knee, right 06/19/2018 Joint Injection - knee, right 02/22/2019 X ray : SI joints- outside order 017 Hep B Surface Ab qualatative 08/26/2023 X ray : Knee, right 3 views- outside ord er 11/19/2019 X ray : Knee, left, 3 views- outside ord er 11/19/2019 QUANTIFERON(R) TB GOLD, (DRAW SITE INCUB ATED) 05/22/2015 X ray : Foot Left- outside order 020 X ray : Foot Right- outside order 2019 Lab slip given 09/27/2020 Lab slip given 02/16/2020 Lab slip given 07/22/2023 Lab slip given 08/26/2023 Lab slip given 04/03/2022 -Xray slip given 08/06/2017 -Xray slip given 11/19/2019 Acute Hepatitis 08/26/2023 Future Test Test Name Order Date AST (SGOT) 05/09/2021 Creatinine, Serum 05/09/2021 ALT (SGPT) 05/09/2021 CBC With Differential/Platelet 1 Lab slip given 05/09/2021 AST (SGOT) 01/21/2022 Creatinine, Serum 01/21/2022 ALT (SGPT) 01/21/2022 CBC With Differential/Platelet 2 AST (SGOT) 01/08/2023 ALT (SGPT) 01/08/2023 Next Appt Details Provider Name:Val Garay, 02/07/2025 01:20:00 PM, [address] [facility], [address], [place], [place], [id number], Insurance Providers Payer Name Payer Address Payer Phone Subscriber Number Group Number Insured Name Patient Relationship to Insured Coverage Start Date Coverage End Date [employer] [address] [place] [address] [id number] CAIN [employer]RAVES Self - patient is the insured 4 MEDICAL (GENERAL) HISTORY Medical History History ICD Code sinus problems, ear aches anxiety, depression - controlled Collagenous colitis keratosis spots burned off 08/2018 Surgical History Surgery Date(Month/Year) Lt foot broken 2002 lumpectomy 1997 Lt arm fractured 1978 Rt arm broken 1970
--- OUTSIDE RECORDS SUMMARY | 2024-12-22 12:23 | XMS_ITS | Patient Health Summary ---
Author Organization [facility] [employer] Address [address] [place] [address] Care Team Providers Care Piping Engineer Name Role Phone Unavailable Primary Care Provider Unavailabl e Note from [facility],non-owned Affiliates and Associated Physician Practices is amultiple site organization consisting of ambulatory clinics and hospital sitesin [place], [place], [place]. This disclosure is being madepursuant to the Care Everywhere program and may not contain all information available regarding this patient. Last updated 18.[facility] Allergies No known active allergies Medications * Be aware that medications may not be up to date on this document. Alwaysverify current medications with the patient. * adalimumab (HUMIRA) 10 MG/0.2ML injection Inject subcutaneously once * methotrexate 2.5 MG tablet Take 2.5 mg by mouth every Friday, Friday & Friday * GABAPENTIN & DIET MANAGE PROD PO * fluticasone propionate (FLONASE) 50 MCG/ACT nasal spray(Started 10/10/2016) [place] 1 [place] into each nostril 2 times daily 1 refill remaining Social History Tobacco Use Types Packs/Day Years Used Date Smoking Tobacco: Former Sex and Gender Information Value Date Recorded Sex Assigned at Not on file Gender Identity Not on file Sexual Orientation Not on file Last Filed Vital Signs Vital Sign Reading Time Taken Comments Blood Pressure 132/90 10/10/2016 3:11 PM [employer] MA[employer] Pulse 84 10/10/2016 3:11 PM [employer] TE[employer] MANAGER Temperature 36.8 C (98.2 F) 10/10/2016 3:11 PM [employer] TE[employer] MANAGER Respiratory Rate - - Oxygen Saturation - - Inhaled Oxygen Concentration - - Weight 71.7 kg (158 lb) 10/10/2016 3:11 PM [employer] TE[employer] MANAGER Height 172.7 cm (5' 8 ) 10/10/2016 3:11 PM [employer] TECH[employer] MANAGER Body Mass Index 24.02 10/10/2016 3:11 PM [employer] TECH[employer] MANAGER Procedures * DERMATOPATHOLOGY(Performed 11/19/2022) Performed for Other follicular cysts of the skin and subcutaneous tissue, Other specified erythematous conditions, Other disturbances of skin sensation Results * DERMATOPATHOLOGY (11/19/2022 3:33 AM [employer] TECH[employer]Y MANAGER) Case Report Dermatopathology Report Case: [id number] Authorizing Provider: Coco Flores MD Collected: 11/19/2022 03:33 AM Ordering Location: [facility] DermPath Lab Received: 11/20/2022 02:23 PM Pathologist: Helga Juárez MD Specimen: Skin, right breast 7 o'clock 3:50 PM [facility] DERMATOPATHOLOGY LABORATORY Final Diagnosis Specimen A. SKIN, right breast 7 o'clock: EPIDERMOID CYST (L72.0) 3:50 PM [facility] DERMATOPATHOLOGY LABORATORY Clinical History Cyst 3:50 PM [facility] DERMATOPATHOLOGY LABORATORY Gross Description Specimen A: Received is one formalin filled container labeled with the patient's name and designated right breast 7 o'clock. The specimen consists of a 16x8x7 mm piece of skin. The specimen is serially sectioned and a area representative section is submitted in cassette 1. Jar 1. 3:50 PM [facility] DERMATOPATHOLOGY LABORATORY Microscopic Description Specimen A. SKIN, right breast 7 o'clock: Within the dermis, there is a space lined by epithelium that resembles normal epidermis and the infundibular portion of the hair follicle. 3:50 PM [facility] DERMATOPATHOLOGY LABORATORY Disclaimer An external and internal positive and negative controls are appropriate for the histochemical, immunohistochemical and immunofluorescence stain(s) in this case (if any), except where stated explicitly. The performance characteristics of the stain(s) cited in this report were developed and its performance characteristic determined by the Dermatopathology Laboratory at [facility], directed by Dr. M. Shanda Wilson. These tests need not be, and therefore are not, approved by the [place] Food and Drug Administration. The tests are used for clinical purposes. Billing Codes Specimen Charges Stain Charges 00056 1 3 3:50 PM [employer] TE[employer] MANAGER DERMATOPATHOLOGY LABORATORY Embedded Images 3 3:50 PM [employer] TECHN[employer]Y MANAGER DERMATOPATHOLOGY LABORATORY Pathology/Cytolo gy TISSUE SPECIMEN FROM SKIN / Unknown 11/19/2022 3:33 AM [employer] TECHN[employer]Y MANAGER 11/20/2022 2:23 PM [employer] TE[employer] MANAGER Coco Flores MD LAB - PATHOLOGY/CYTO LOGY ORDERABLES DERMATOPATHOLOGY LABORATORY [facility] - Department of Dermatology [facility] Medicine [address] [place] [address], [address] [phone]
[2024-12-22 18:54] LABS: Add Urine Microscopic? NO; Appearance Urine Clear (Clear); Bilirubin Urine Negative (Negative); Blood Urine Negative (Negative); Color Urine Yellow (Yellow); Glucose Urine UA Negative (Negative); Ketones Urine Negative (Negative); Leukocyte Esterase Ur Negative LEU/UL (Negative); Nitrate Urine Negative (Negative); Protein Urine Negative (Negative); Specific Grav Ur 1.022 (1.001-1.035); Urobilinogen Urine 0.2 mg/dL (<2.0); pH Urine 6.5 (5.0-9.0)
== END 2024-12-22 10:45 | disposition home or self-care (01) ==
PROVIDERS: PCP Nurse Practitioner Adult Health; Visit Provider Nurse Practitioner Adult Health
DX: R50.9 Fever, unspecified (principal)
CPT/HCPCS: 71046; 81003; 87086